=== PATIENT | female | born 1940 | race Two or more races ===

== ENCOUNTER 2017-05-26 11:17 | Outpatient (CLI) | payer OTHER ==
[~2017-05-26 11:17] MED LIST: DOLOGESIC CAPLE1 TAB PO; NABUMETONE500 MG PO
== END 2017-05-26 15:41 | disposition home or self-care (01) ==
LOC: MRI 11:17
DX: M25.512 Pain in left shoulder (principal); M54.5 Low back pain; M75.102 Unspecified rotator cuff tear or rupture of left shoulder, not specified as traumatic; M54.2 Cervicalgia
CPT/HCPCS: 72141; 73221

== ENCOUNTER 2017-05-26 11:30 | Outpatient (CLI) | payer OTHER | END 2017-05-26 15:40 | disposition home or self-care (01) | LOC: RAD 11:30 | DX: M25.561 Pain in right knee (principal); M25.562 Pain in left knee ==

== ENCOUNTER 2017-06-26 05:56 | Day surgery (SDC) | payer OTHER ==
[2017-06-26] MEDS ORDERED: NABUMETONE500 MG PO (08:58)
== END 2017-06-26 12:40 | disposition home or self-care (01) ==
LOC: CIR.AMB 05:56
DX: M23.322 Other meniscus derangements, posterior horn of medial meniscus, left knee (principal); M23.352 Other meniscus derangements, posterior horn of lateral meniscus, left knee; M94.262 Chondromalacia, left knee; M65.862 Other synovitis and tenosynovitis, left lower leg; M13.862 Other specified arthritis, left knee

== ENCOUNTER 2020-12-05 10:03 | Outpatient (CLI) | payer OTHER | END 2020-12-05 10:09 | disposition home or self-care (01) | LOC: RAD 10:03 | PROVIDERS: ATTEND Orthopaedic Surgery | DX: M17.12 Unilateral primary osteoarthritis, left knee (principal); M25.561 Pain in right knee; M25.562 Pain in left knee ==

== ENCOUNTER 2021-09-06 10:17 | Outpatient (CLI) | payer OTHER | END 2021-09-06 10:23 | disposition home or self-care (01) | LOC: NUCLEAR 10:17 | PROVIDERS: ATTEND Obstetrics & Gynecology | DX: M81.0 Age-related osteoporosis without current pathological fracture (principal); Z88.5 Allergy status to narcotic agent; Z88.6 Allergy status to analgesic agent ==

== ENCOUNTER → 2021-09-10 | Outpatient (CLI) | payer OTHER | END | disposition home or self-care (01) | LOC: MAMO-SONO 08:24 | PROVIDERS: ATTEND Obstetrics & Gynecology | DX: N60.11 Diffuse cystic mastopathy of right breast (principal) ==

== ENCOUNTER 2022-12-15 10:49 | Outpatient (CLI) | payer OTHER | END 2022-12-15 11:03 | disposition home or self-care (01) | LOC: RAD 10:49 | PROVIDERS: ATTEND Orthopaedic Surgery | DX: M25.551 Pain in right hip (principal); M25.552 Pain in left hip; M25.561 Pain in right knee; M25.562 Pain in left knee ==

== ENCOUNTER 2024-12-21 12:30 | Outpatient (CLI) | payer OTHER | END 2024-12-21 12:31 | disposition home or self-care (01) | LOC: SONOGRAMA 12:30 | PROVIDERS: ATTEND Orthopaedic Surgery | DX: M25.511 Pain in right shoulder (principal) ==